=== PATIENT | male | born 1950 | race Caucasian/White ===

== ENCOUNTER 2017-02-18 01:38 | Emergency (ER) | payer OTHER | END 2017-02-18 04:36 | disposition home or self-care (01) | LOC: FTE 01:38 | DX: M25.551 Pain in right hip (principal); D17.23 Benign lipomatous neoplasm of skin and subcutaneous tissue of right leg; I10 Essential (primary) hypertension; F17.210 Nicotine dependence, cigarettes, uncomplicated | CPT/HCPCS: 73510; 99283-25 ==

== ENCOUNTER 2017-06-19 04:04 | Emergency (ER) | payer OTHER ==
[2017-06-19] MEDS: IPRATROPIUM (NEB) 0.5 MG/2.5 ML AMP HHN ×2 (04:53→05:48)
[2017-06-19] MEDS: ALBUTEROL 0.083% (NEB) 2.5 MG/3 ML AMP HHN ×2 (04:53→05:48)
== END 2017-06-19 07:05 | disposition home or self-care (01) ==
LOC: FTE 04:04
DX: J06.9 Acute upper respiratory infection, unspecified (principal); I10 Essential (primary) hypertension; F17.210 Nicotine dependence, cigarettes, uncomplicated
CPT/HCPCS: 94640; 94664; 99284-25

== ENCOUNTER 2017-10-08 12:46 | Emergency (ER) | payer OTHER ==
[2017-10-08] MEDS ORDERED: SOD CHLORIDE 0.9% 1,000 ML IV (12:54)
[2017-10-08] MEDS: HYDROCODONE/APAP (10/325) TAB PO (14:12)
[2017-10-08] MEDS: LOPERAMIDE 2 MG CAP PO (14:12)
== END 2017-10-08 15:57 | disposition home or self-care (01) ==
LOC: E/R 12:46
DX: F11.23 Opioid dependence with withdrawal (principal); I10 Essential (primary) hypertension; F17.210 Nicotine dependence, cigarettes, uncomplicated
CPT/HCPCS: 99283; J7030

== ENCOUNTER 2017-10-08 17:14 | Inpatient (IN) | payer OTHER ==
[2017-10-08 17:57] LABS: ADD MAN DIFF? NO
[2017-10-08] MEDS: LORAZEPAM 2 MG INJ IV ×4 (18:00→23:44)
[2017-10-08 18:01] LABS: WHITE BLOOD COUNT 18.9 10^3/ul (4.8-10.8)
[2017-10-08 18:01] LABS: BASOPHILS % 0.2 % (0.0-2.0); HEMATOCRIT 43.5 % (42.0-52.0); HEMOGLOBIN 15.5 g/dl (14.0-18.0); LYMPHOCYTES # 0.7 10^3/ul (0.8-2.9); LYMPHOCYTES % 3.9 % (15.0-51.0); MEAN CORPUSCULAR HEMOGLOBIN 30.3 pg (29.0-33.0); MEAN CORPUSCULAR HGB CONC 35.6 g/dl (32.0-37.0); MEAN CORPUSCULAR VOLUME 85.1 fl (82.0-101.0); MEAN PLATELET VOLUME 9.1 fl (7.4-10.4); MONOCYTE # 1.4 10^3/ul (0.3-0.9); MONOCYTES % 7.2 % (0.0-11.0); NEUTROPHIL # 16.6 10^3/ul (1.6-7.5); NEUTROPHILS % 88.2 % (39.0-77.0); PLATELET COUNT 365 10^3/UL (140-415); RED BLOOD COUNT 5.11 10^6/ul (4.70-6.10); RED CELL DISTRIBUTION WIDTH 12.4 % (11.5-14.5)
[2017-10-08] MEDS: LORAZEPAM 2 MG INJ IM (18:01)
[2017-10-08] MEDS: SOD CHLORIDE 0.9% 1,000 ML IV (18:13)
[2017-10-08 18:21] LABS: ALANINE AMINOTRANSFERASE 19 IU/L (13-69); ALBUMIN 4.8 g/dl (3.3-4.9); ALBUMIN/GLOBULIN RATIO 1.26; ALKALINE PHOSPHATASE 83 IU/L (42-121); ANION GAP 18 (8-16); ASPARTATE AMINO TRANSFERASE 35 IU/L (15-46); BILIRUBIN,INDIRECT 0.5 mg/dl (0-1.1); BILIRUBIN,TOTAL 0.5 mg/dl (0.2-1.3); BLOOD UREA NITROGEN 11 mg/dl (7-20); CALCIUM 10.3 mg/dl (8.4-10.2); CARBON DIOXIDE 19 mmol/L (21-31); CHLORIDE 104 mmol/L (97-110); CREATININE 0.76 mg/dl (0.61-1.24); GLUCOSE 144 mg/dl (70-220); LIPASE 1539 U/L (23-300); POTASSIUM 3.3 mmol/L (3.5-5.1); SODIUM 138 mmol/L (135-144); TOTAL PROTEIN 8.6 g/dl (6.1-8.1)
[2017-10-08 18:23] LABS: AMMONIA < 9 umol/l (9-30)
[2017-10-08 18:44] LABS: ADD UMIC YES; UR ASCORBIC ACID NEGATIVE (NEGATIVE); UR BILIRUBIN (Dip) NEGATIVE (NEGATIVE); UR BLOOD (Dip) 2+ mg/dL (NEGATIVE); UR CLARITY CLEAR (CLEAR); UR COLOR YELLOW (YELLOW); UR GLUCOSE (Dip) 1+ mg/dL (NEGATIVE); UR KETONES (Dip) 1+ mg/dL (NEGATIVE); UR LEUKOCYTE ESTERASE (Dip) NEGATIVE Leu/ul (NEGATIVE); UR NITRITE (Dip) NEGATIVE (NEGATIVE); UR RBC 3 /HPF (0-5); UR SPECIFIC GRAVITY (Dip) 1.015 (1.003-1.030); UR TOTAL PROTEIN (Dip) 1+ mg/dl (NEGATIVE); UR UROBILINOGEN (Dip) NEGATIVE (NEGATIVE); UR WBC 1 /HPF (0-5)
[2017-10-08] MEDS ORDERED: ACETAMINOPHEN 325 MG TAB PO (19:00)
[2017-10-08] MEDS ORDERED: ONDANSETRON 4 MG INJ IV ×2 (19:00→21:30)
[2017-10-08] MEDS: ONDANSETRON 4 MG INJ IV (19:12)
[2017-10-08] MEDS: morphine 4 MG/ML VIAL IV (19:12)
[2017-10-08 19:33] LABS: ETHANOL < 10.0 mg/dl
[2017-10-08] MEDS: HALOPERIDOL 5 MG INJ IM (19:50)
[2017-10-08] MEDS: POTASSIUM CHLORIDE 100 ML IVPB (20:05)
[2017-10-08] MEDS: HYDROmorphONE 1 MG/ML SYG IV (21:16)
[2017-10-08] MEDS ORDERED: NACL 0.9% 3 ML SYG IV (21:30)
[2017-10-08] MEDS ORDERED: IPRATROPIUM (NEB) 0.5 MG/2.5 ML AMP NEB (21:30)
[2017-10-09] MEDS: CEFEPIME 1GM/50 ML (PMX) 50 ML IVPB ×3 (03:19→21:17)
[2017-10-09] MEDS: LORAZEPAM 2 MG INJ IV ×2 (04:57→23:37)
[2017-10-09] MEDS ORDERED: MULTIVITAMINS 10 ML, THIAMINE 100 MG, FOLIC ACID 1 MG in SOD CHLORIDE 0.9% 1,000 ML IVPB (05:00)
[2017-10-09] MEDS: MULTIVITAMINS 10 ML, THIAMINE 100 MG in SOD CHLORIDE 0.9% 1,000 ML IVPB (05:19)
[2017-10-09 06:18] LABS: ADD MAN DIFF? NO
[2017-10-09 06:40] LABS: BASOPHILS % 0.1 % (0.0-2.0); HEMATOCRIT 47.7 % (42.0-52.0); HEMOGLOBIN 16.9 g/dl (14.0-18.0); LYMPHOCYTES # 0.9 10^3/ul (0.8-2.9); LYMPHOCYTES % 5.5 % (15.0-51.0); MEAN CORPUSCULAR HEMOGLOBIN 29.8 pg (29.0-33.0); MEAN CORPUSCULAR HGB CONC 35.4 g/dl (32.0-37.0); MEAN PLATELET VOLUME 9.6 fl (7.4-10.4); MONOCYTE # 1.3 10^3/ul (0.3-0.9); MONOCYTES % 7.3 % (0.0-11.0); NEUTROPHIL # 14.7 10^3/ul (1.6-7.5); NEUTROPHILS % 86.4 % (39.0-77.0); PLATELET COUNT 335 10^3/UL (140-415); RED BLOOD COUNT 5.68 10^6/ul (4.70-6.10); RED CELL DISTRIBUTION WIDTH 12.9 % (11.5-14.5)
[2017-10-09 07:36] LABS: ALANINE AMINOTRANSFERASE 24 IU/L (13-69); ALBUMIN 4.5 g/dl (3.3-4.9); ALBUMIN/GLOBULIN RATIO 1.25; ALKALINE PHOSPHATASE 76 IU/L (42-121); ANION GAP 18 (8-16); ASPARTATE AMINO TRANSFERASE 108 IU/L (15-46); BILIRUBIN,INDIRECT 0.8 mg/dl (0-1.1); BILIRUBIN,TOTAL 0.8 mg/dl (0.2-1.3); BLOOD UREA NITROGEN 10 mg/dl (7-20); CALCIUM 9.9 mg/dl (8.4-10.2); CARBON DIOXIDE 19 mmol/L (21-31); CHLORIDE 107 mmol/L (97-110); CREATININE 0.65 mg/dl (0.61-1.24); GLUCOSE 135 mg/dl (70-220); MAGNESIUM 1.8 mg/dl (1.7-2.5); PHOSPHORUS 1.6 mg/dl (2.5-4.9); POTASSIUM 4.1 mmol/L (3.5-5.1); SODIUM 140 mmol/L (135-144); TOTAL PROTEIN 8.1 g/dl (6.1-8.1)
[2017-10-09] MEDS: FAMOTIDINE 20 MG INJ IV ×2 (09:07→21:04)
[2017-10-09] MEDS ORDERED: VANCOMYCIN IV PER PHARMACY XX (09:30)
[2017-10-09] MEDS ORDERED: VANCOMYCIN 1.25 GM in SOD CHLORIDE 0.9% 250 ML IVPB (10:00)
[2017-10-09 12:39] LABS: AMPHETAMINE/METHAMPHETAMINE Negative (NEGATIVE); BARBITURATES Negative (NEGATIVE); BENZODIAZEPINES Negative (NEGATIVE); CANNABINOIDS Negative (NEGATIVE); COCAINE Negative (NEGATIVE)
[2017-10-09] MEDS ORDERED: NALOXONE (0.4 MG/ML) INJ (12:53)
[2017-10-09 12:55] LABS: OPIATES Positive (NEGATIVE)
[2017-10-09] MEDS: NALOXONE (0.4 MG/ML) INJ IV (13:01)
[2017-10-09] MEDS: VANCOMYCIN 1.25 GM in SOD CHLORIDE 0.9% 250 ML IVPB (15:03)
[2017-10-09] MEDS: CHLORDIAZEPOXIDE 25 MG CAP PO (21:04)
[2017-10-09] MEDS: SOD CHLORIDE 0.9% 1,000 ML IV (21:07)
[2017-10-10] MEDS: SOD CHLORIDE 0.9% 1,000 ML IV ×2 (00:01→09:00)
[2017-10-10] MEDS: VANCOMYCIN 1 GM 250 ML IVPB (01:49)
[2017-10-10] MEDS: MULTIVITAMINS 10 ML, THIAMINE 100 MG in SOD CHLORIDE 0.9% 1,000 ML IVPB (04:17)
[2017-10-10] MEDS: LORAZEPAM 2 MG INJ IV (04:39)
[2017-10-10 06:20] LABS: ADD MAN DIFF? NO
[2017-10-10 06:25] LABS: ABNORMAL IP MESSAGE 1; BASOPHILS % 0.1 % (0.0-2.0); HEMATOCRIT 45.9 % (42.0-52.0); HEMOGLOBIN 16.2 g/dl (14.0-18.0); LYMPHOCYTES # 1.2 10^3/ul (0.8-2.9); LYMPHOCYTES % 6.3 % (15.0-51.0); MEAN CORPUSCULAR HEMOGLOBIN 29.8 pg (29.0-33.0); MEAN CORPUSCULAR HGB CONC 35.3 g/dl (32.0-37.0); MEAN CORPUSCULAR VOLUME 84.5 fl (82.0-101.0); MEAN PLATELET VOLUME 9.1 fl (7.4-10.4); MONOCYTE # 1.7 10^3/ul (0.3-0.9); MONOCYTES % 8.9 % (0.0-11.0); NEUTROPHIL # 15.8 10^3/ul (1.6-7.5); NEUTROPHILS % 84.2 % (39.0-77.0); PLATELET COUNT 349 10^3/UL (140-415); POSITIVE DIFF @See below; RED BLOOD COUNT 5.43 10^6/ul (4.70-6.10); RED CELL DISTRIBUTION WIDTH 13.2 % (11.5-14.5)
[2017-10-10 06:25] LABS: WHITE BLOOD COUNT 18.7 10^3/ul (4.8-10.8)
[2017-10-10 06:43] LABS: AMYLASE 157 U/L (11-123); ANION GAP 13 (8-16); BLOOD UREA NITROGEN 12 mg/dl (7-20); CALCIUM 9.2 mg/dl (8.4-10.2); CARBON DIOXIDE 22 mmol/L (21-31); CHLORIDE 109 mmol/L (97-110); CREATININE 0.64 mg/dl (0.61-1.24); GLUCOSE 149 mg/dl (70-220); LIPASE 729 U/L (23-300); MAGNESIUM 2.1 mg/dl (1.7-2.5); PHOSPHORUS 1.8 mg/dl (2.5-4.9); POTASSIUM 3.1 mmol/L (3.5-5.1); SODIUM 141 mmol/L (135-144)
[2017-10-10] MEDS: CHLORDIAZEPOXIDE 25 MG CAP PO (09:00)
[2017-10-10] MEDS: CEFEPIME 1GM/50 ML (PMX) 50 ML IVPB (09:10)
[2017-10-10] MEDS: FAMOTIDINE 20 MG INJ IV (09:10)
[2017-10-10] MEDS ORDERED: POTASSIUM PHOSPHATE 20 MEQ in SOD CHLORIDE 0.9% 250 ML IVPB (12:00)
== END 2017-10-10 11:05 | disposition left against medical advice (07) | DRG 438 ==
LOC: E/R 17:14 → 2NE 18:57 → TEL 22:41
PROVIDERS: Internal Medicine
DX: K85.90 Acute pancreatitis without necrosis or infection, unspecified (principal); G92 Toxic encephalopathy; R65.10 Systemic inflammatory response syndrome (SIRS) of non-infectious origin without acute organ dysfunction; E87.6 Hypokalemia; E83.39 Other disorders of phosphorus metabolism; F17.200 Nicotine dependence, unspecified, uncomplicated
CPT/HCPCS: 36415; 70450; 71045; 74176; 76705; 80048; 80053; 80307; 81001; 82140; 82150; 83690; 83735; 84100; 85025; 87040; 87086; 96372; 97161; 99285-25

== ENCOUNTER 2017-10-12 14:34 | Observation (INO) | payer MEDICARE, OTHER ==
[2017-10-12] MEDS: SOD CHLORIDE 0.9% 1,000 ML IV ×4 (15:00→21:51)
[2017-10-12] MEDS: LORAZEPAM 2 MG INJ IV ×2 (15:00→19:47)
[2017-10-12 15:13] LABS: ADD UMIC YES; UR ASCORBIC ACID NEGATIVE (NEGATIVE); UR BILIRUBIN (Dip) NEGATIVE (NEGATIVE); UR BLOOD (Dip) 1+ mg/dL (NEGATIVE); UR CLARITY CLEAR (CLEAR); UR COLOR YELLOW (YELLOW); UR GLUCOSE (Dip) NEGATIVE (NEGATIVE); UR KETONES (Dip) NEGATIVE (NEGATIVE); UR LEUKOCYTE ESTERASE (Dip) NEGATIVE Leu/ul (NEGATIVE); UR NITRITE (Dip) NEGATIVE (NEGATIVE); UR RBC 0 /HPF (0-5); UR SPECIFIC GRAVITY (Dip) 1.018 (1.003-1.030); UR TOTAL PROTEIN (Dip) NEGATIVE (NEGATIVE); UR UROBILINOGEN (Dip) NEGATIVE (NEGATIVE); UR WBC 1 /HPF (0-5)
[2017-10-12 15:39] LABS: ADD MAN DIFF? NO
[2017-10-12 15:41] LABS: ABNORMAL IP MESSAGE 1; BASOPHILS % 0.1 % (0.0-2.0); EOSINOPHILS # 0.2 10^3/ul (0.0-0.5); EOSINOPHILS % 1.8 % (0.0-7.0); HEMATOCRIT 41.3 % (42.0-52.0); HEMOGLOBIN 14.7 g/dl (14.0-18.0); LYMPHOCYTES # 1.7 10^3/ul (0.8-2.9); LYMPHOCYTES % 12.8 % (15.0-51.0); MEAN CORPUSCULAR HEMOGLOBIN 30.5 pg (29.0-33.0); MEAN CORPUSCULAR HGB CONC 35.6 g/dl (32.0-37.0); MEAN CORPUSCULAR VOLUME 85.7 fl (82.0-101.0); MEAN PLATELET VOLUME 9.1 fl (7.4-10.4); MONOCYTE # 1.6 10^3/ul (0.3-0.9); MONOCYTES % 12.1 % (0.0-11.0); NEUTROPHIL # 9.8 10^3/ul (1.6-7.5); NEUTROPHILS % 72.7 % (39.0-77.0); PLATELET COUNT 302 10^3/UL (140-415); POSITIVE DIFF @See below; RED BLOOD COUNT 4.82 10^6/ul (4.70-6.10)
[2017-10-12 15:41] LABS: WHITE BLOOD COUNT 13.5 10^3/ul (4.8-10.8)
[2017-10-12 16:09] LABS: ALANINE AMINOTRANSFERASE 63 IU/L (13-69); ALBUMIN 4.1 g/dl (3.3-4.9); ALBUMIN/GLOBULIN RATIO 1.24; ALKALINE PHOSPHATASE 64 IU/L (42-121); ANION GAP 15 (8-16); ASPARTATE AMINO TRANSFERASE 85 IU/L (15-46); BILIRUBIN,INDIRECT 0.4 mg/dl (0-1.1); BILIRUBIN,TOTAL 0.4 mg/dl (0.2-1.3); BLOOD UREA NITROGEN 33 mg/dl (7-20); CALCIUM 9.4 mg/dl (8.4-10.2); CARBON DIOXIDE 23 mmol/L (21-31); CHLORIDE 107 mmol/L (97-110); CREATININE 1.26 mg/dl (0.61-1.24); GLUCOSE 84 mg/dl (70-220); POTASSIUM 3.1 mmol/L (3.5-5.1); SODIUM 142 mmol/L (135-144); TOTAL PROTEIN 7.4 g/dl (6.1-8.1)
[2017-10-12 16:16] LABS: AMPHETAMINE/METHAMPHETAMINE Negative (NEGATIVE); BARBITURATES Negative (NEGATIVE); BENZODIAZEPINES Positive (NEGATIVE); CANNABINOIDS Negative (NEGATIVE); COCAINE Negative (NEGATIVE)
[2017-10-12 16:35] LABS: ACETAMINOPHEN < 10.0 ug/ml (10.0-30.0); ETHANOL < 10.0 mg/dl; SALICYLATE < 1.0 mg/dl (5.0-30.0)
[2017-10-12 16:36] LABS: OPIATES Positive (NEGATIVE)
[2017-10-12] MEDS ORDERED: ONDANSETRON 4 MG INJ IV ×3 (18:30→19:00)
[2017-10-12] MEDS ORDERED: ACETAMINOPHEN 325 MG TAB PO ×3 (18:30→19:00)
[2017-10-12] MEDS ORDERED: NACL 0.9% 3 ML SYG IV (19:00)
[2017-10-12] MEDS ORDERED: NA PHOSPHATE/BIPHOS 133 ML ENEMA PR (19:00)
[2017-10-12] MEDS ORDERED: DOCUSATE SODIUM 100 MG CAP PO (19:00)
[2017-10-12] MEDS ORDERED: NITROGLYCERIN (SL) 0.4 MG TAB SL (19:00)
[2017-10-12] MEDS ORDERED: HYDROCODONE/APAP (5/325) TAB PO (19:00)
[2017-10-12] MEDS ORDERED: ALBUTEROL/IPRATROPIUM (NEB) 3 ML AMP HHN (19:00)
[2017-10-12] MEDS ORDERED: hydrALAzine 20 MG INJ IV (19:00)
[2017-10-12] MEDS ORDERED: MAGNESIUM HYDROXIDE 30ML CUP PO (19:00)
[2017-10-12] MEDS ORDERED: FLUMAZENIL 0.5 MG INJ ×2 (19:15→19:16)
[2017-10-12] MEDS: FLUMAZENIL 0.5 MG INJ IV (19:18)
[2017-10-12] MEDS: ACETAMINOPHEN 650 MG SUPP PR (19:46)
[2017-10-12] MEDS: HEPARIN 5,000 UNIT/0.5 ML VIAL SC (21:52)
[2017-10-13] MEDS: SOD CHLORIDE 0.9% 1,000 ML IV ×2 (04:51→14:51)
[2017-10-13] MEDS: POTASSIUM CHLORIDE (SR) 20 MEQ TAB PO (05:00)
[2017-10-13] MEDS: HALOPERIDOL 5 MG INJ IM (05:19)
[2017-10-13] MEDS: PANTOPRAZOLE 40 MG INJ IV (05:19)
[2017-10-13 06:17] LABS: ADD MAN DIFF? NO
[2017-10-13 06:35] LABS: BASOPHILS % 0.1 % (0.0-2.0); HEMOGLOBIN 17.3 g/dl (14.0-18.0); LYMPHOCYTES # 1.1 10^3/ul (0.8-2.9); LYMPHOCYTES % 9.5 % (15.0-51.0); MEAN CORPUSCULAR HEMOGLOBIN 30.4 pg (29.0-33.0); MEAN CORPUSCULAR VOLUME 84.2 fl (82.0-101.0); MEAN PLATELET VOLUME 9.6 fl (7.4-10.4); MONOCYTE # 1.1 10^3/ul (0.3-0.9); MONOCYTES % 10.1 % (0.0-11.0); NEUTROPHILS % 79.8 % (39.0-77.0); PLATELET COUNT 264 10^3/UL (140-415); RED CELL DISTRIBUTION WIDTH 12.6 % (11.5-14.5)
[2017-10-13 06:35] LABS: WHITE BLOOD COUNT 11.3 10^3/ul (4.8-10.8)
[2017-10-13 07:25] LABS: ANION GAP 16 (8-16); BLOOD UREA NITROGEN 14 mg/dl (7-20); CALCIUM 8.9 mg/dl (8.4-10.2); CARBON DIOXIDE 22 mmol/L (21-31); CHLORIDE 109 mmol/L (97-110); CREATININE 0.65 mg/dl (0.61-1.24); GLUCOSE 95 mg/dl (70-220); MAGNESIUM 1.9 mg/dl (1.7-2.5); PHOSPHORUS 1.9 mg/dl (2.5-4.9); POTASSIUM 3.1 mmol/L (3.5-5.1); SODIUM 144 mmol/L (135-144)
[2017-10-13 07:28] LABS: HEMOGLOBIN A1C 5.7 % (0-5.9)
[2017-10-13 07:43] LABS: CHOLESTEROL 198 mg/dl (100-200)
[2017-10-13 07:43] LABS: CHOL/HDL RATIO 4.8 RATIO; HDL CHOLESTEROL 41 mg/dl (30-78); LDL CHOLESTEROL,CALCULATED 128 mg/dl; TRIGLYCERIDES 144 mg/dl (0-149)
[2017-10-13 07:54] LABS: LIPASE 612 U/L (23-300)
[2017-10-13 08:12] LABS: THYROID STIMULATING HORMONE 0.228 MIU/L (0.465-4.680)
[2017-10-13] MEDS: POTASSIUM CHLORIDE 100 ML IVPB ×2 (09:12→10:36)
[2017-10-13] MEDS: LEVOFLOXACIN 500MG/D5W (PMX) 100 ML IVPB (09:12)
[2017-10-13] MEDS: HEPARIN 5,000 UNIT/0.5 ML VIAL SC ×2 (10:06→20:56)
[2017-10-13] MEDS: POTASSIUM PHOSPHATE 40 MEQ in SOD CHLORIDE 0.9% 250 ML IVPB (13:18)
[2017-10-13] MEDS: METHADONE 5 MG TAB PO (17:56)
[2017-10-13] MEDS ORDERED: METHADONE 10 MG TAB PO (18:10)
[2017-10-13] MEDS: LORAZEPAM 2 MG INJ IV (18:59)
[2017-10-14] MEDS: LORAZEPAM 2 MG INJ IV
[2017-10-14] MEDS: SOD CHLORIDE 0.9% 1,000 ML IV ×2 (04:21→10:58)
[2017-10-14] MEDS: PANTOPRAZOLE 40 MG INJ IV (05:55)
[2017-10-14 06:07] LABS: ADD MAN DIFF? NO
[2017-10-14 06:13] LABS: ABNORMAL IP MESSAGE 1; BASOPHILS % 0.1 % (0.0-2.0); EOSINOPHILS # 0.1 10^3/ul (0.0-0.5); EOSINOPHILS % 0.5 % (0.0-7.0); HEMATOCRIT 44.2 % (42.0-52.0); HEMOGLOBIN 15.4 g/dl (14.0-18.0); LYMPHOCYTES # 1.6 10^3/ul (0.8-2.9); MEAN CORPUSCULAR HEMOGLOBIN 29.9 pg (29.0-33.0); MEAN CORPUSCULAR HGB CONC 34.8 g/dl (32.0-37.0); MEAN CORPUSCULAR VOLUME 85.8 fl (82.0-101.0); MEAN PLATELET VOLUME 9.4 fl (7.4-10.4); MONOCYTE # 1.7 10^3/ul (0.3-0.9); NEUTROPHIL # 10.9 10^3/ul (1.6-7.5); NEUTROPHILS % 75.9 % (39.0-77.0); PLATELET COUNT 317 10^3/UL (140-415); POSITIVE DIFF @See below; RED BLOOD COUNT 5.15 10^6/ul (4.70-6.10); RED CELL DISTRIBUTION WIDTH 13.2 % (11.5-14.5)
[2017-10-14 06:13] LABS: WHITE BLOOD COUNT 14.4 10^3/ul (4.8-10.8)
[2017-10-14 06:41] LABS: ANION GAP 13 (8-16); BLOOD UREA NITROGEN 10 mg/dl (7-20); CALCIUM 9.2 mg/dl (8.4-10.2); CARBON DIOXIDE 24 mmol/L (21-31); CHLORIDE 109 mmol/L (97-110); CREATININE 0.59 mg/dl (0.61-1.24); GLUCOSE 109 mg/dl (70-220); POTASSIUM 3.6 mmol/L (3.5-5.1); SODIUM 142 mmol/L (135-144)
[2017-10-14 06:44] LABS: PHOSPHORUS 2.1 mg/dl (2.5-4.9)
[2017-10-14 06:44] LABS: MAGNESIUM 1.9 mg/dl (1.7-2.5)
[2017-10-14] MEDS: LEVOFLOXACIN 500MG/D5W (PMX) 100 ML IVPB (09:10)
[2017-10-14] MEDS: METHADONE 10 MG TAB PO (09:10)
[2017-10-14] MEDS: HEPARIN 5,000 UNIT/0.5 ML VIAL SC (09:46)
[2017-10-14 10:37] LABS: LIPASE 828 U/L (23-300)
[2017-10-14] MEDS: POTASSIUM PHOSPHATE 30 MM in SOD CHLORIDE 0.9% 250 ML IVPB (10:58)
[2017-10-14] MEDS: NICOTINE (21 MG/24 HR) PATCH TRANSDERM (11:56)
[2017-10-14] MEDS: morphine 2 MG INJ IV (13:08)
== END 2017-10-14 15:20 | disposition home or self-care (01) ==
LOC: E/R 14:34 → 6WM 18:08
PROVIDERS: Hospitalist
DX: T40.1X1A Poisoning by heroin, accidental (unintentional), initial encounter (principal); N17.9 Acute kidney failure, unspecified; E87.6 Hypokalemia; G92 Toxic encephalopathy; F11.129 Opioid abuse with intoxication, unspecified; K85.90 Acute pancreatitis without necrosis or infection, unspecified
CPT/HCPCS: 36415; 70450; 71045; 80048; 80053; 80061; 80307; 81001; 82962; 83036; 83690; 83735; 84100; 84439; 84443; 85025; 92610; 93005; 96374; 99285-25; G0378

== ENCOUNTER 2018-01-20 20:20 | Emergency (ER) | payer MEDICARE, OTHER ==
[2018-01-20 21:14] LABS: ADD MAN DIFF? NO
[2018-01-20 21:24] LABS: WHITE BLOOD COUNT 7.4 10^3/ul (4.8-10.8)
[2018-01-20 21:24] LABS: BASOPHILS % 0.1 % (0.0-2.0); EOSINOPHILS # 0.1 10^3/ul (0.0-0.5); EOSINOPHILS % 0.8 % (0.0-7.0); HEMATOCRIT 44.5 % (42.0-52.0); HEMOGLOBIN 15.1 g/dl (14.0-18.0); LYMPHOCYTES # 0.8 10^3/ul (0.8-2.9); LYMPHOCYTES % 10.7 % (15.0-51.0); MEAN CORPUSCULAR HEMOGLOBIN 29.6 pg (29.0-33.0); MEAN CORPUSCULAR HGB CONC 33.9 g/dl (32.0-37.0); MEAN CORPUSCULAR VOLUME 87.3 fl (82.0-101.0); MEAN PLATELET VOLUME 9.7 fl (7.4-10.4); MONOCYTE # 0.6 10^3/ul (0.3-0.9); MONOCYTES % 8.5 % (0.0-11.0); NEUTROPHIL # 5.9 10^3/ul (1.6-7.5); NEUTROPHILS % 79.6 % (39.0-77.0); PLATELET COUNT 224 10^3/UL (140-415); RED CELL DISTRIBUTION WIDTH 13.5 % (11.5-14.5)
[2018-01-20] MEDS: CEFTRIAXONE 1 GM/50 ML (PMX) 50 ML IVPB (21:27)
[2018-01-20] MEDS: SODIUM CHLORIDE 0.9% 1L BAG IV* (21:27)
[2018-01-20 21:48] LABS: ANION GAP 14 (5-13); BLOOD UREA NITROGEN 9 mg/dl (7-20); CALCIUM 9.5 mg/dl (8.4-10.2); CARBON DIOXIDE 20 mmol/L (21-31); CHLORIDE 102 mmol/L (97-110); CREATININE 0.66 mg/dl (0.61-1.24); Estimated GFR > 60 mL/min (>60); GLUCOSE 138 mg/dl (70-220); POTASSIUM 3.8 mmol/L (3.5-5.1); SODIUM 136 mmol/L (135-144)
[2018-01-20 21:51] LABS: INR 0.91; PROTIME 12.3 Sec (11.9-14.9)
[2018-01-20 21:52] LABS: PARTIAL THROMBOPLASTIN TIME 30.6 Sec (23.0-35.0)
[2018-01-20 22:00] LABS: TROPONIN-I < 0.012 ng/ml (0.000-0.120)
[2018-01-20] MEDS: AZITHROMYCIN 500MG/NS (PMX) 250 ML IV (22:04)
[2018-01-20] MEDS: ALBUTEROL 0.083% (NEB) 2.5 MG/3 ML AMP NEB (22:16)
[2018-01-20] MEDS: IPRATROPIUM (NEB) 0.5 MG/2.5 ML AMP NEB (22:16)
[2018-01-20] MEDS: predniSONE 20 MG TAB PO (23:09)
== END 2018-01-20 23:25 | disposition home or self-care (01) ==
LOC: E/R 20:20
DX: J22 Unspecified acute lower respiratory infection (principal); F17.210 Nicotine dependence, cigarettes, uncomplicated
CPT/HCPCS: 71045; 80048; 83605; 84484; 85025; 85610; 85730; 87040; 87400; 93005; 94664; 96365; 96366; 96368; 99285-25

== ENCOUNTER 2018-04-25 01:22 | Inpatient (IN) | payer MEDICARE, OTHER ==
[2018-04-25] MEDS: ONDANSETRON 4 MG INJ IV ×2 (05:01→09:52)
[2018-04-25] MEDS: SOD CHLORIDE 0.9% 1,000 ML IV ×2 (05:01→13:15)
[2018-04-25] MEDS: HYDROmorphONE 1 MG/ML SYG IV ×2 (05:01→09:52)
[2018-04-25 06:01] LABS: ADD MAN DIFF? NO
[2018-04-25 06:03] LABS: BASOPHILS % 0.1 % (0.0-2.0); EOSINOPHILS % 0.1 % (0.0-7.0); HEMATOCRIT 45.9 % (42.0-52.0); HEMOGLOBIN 16.1 g/dl (14.0-18.0); LYMPHOCYTES # 0.8 10^3/ul (0.8-2.9); LYMPHOCYTES % 4.1 % (15.0-51.0); MEAN CORPUSCULAR HEMOGLOBIN 29.8 pg (29.0-33.0); MEAN CORPUSCULAR HGB CONC 35.1 g/dl (32.0-37.0); MEAN PLATELET VOLUME 9.6 fl (7.4-10.4); MONOCYTE # 0.8 10^3/ul (0.3-0.9); NEUTROPHIL # 17.8 10^3/ul (1.6-7.5); NEUTROPHILS % 91.3 % (39.0-77.0); PLATELET COUNT 244 10^3/UL (140-415); RED CELL DISTRIBUTION WIDTH 13.1 % (11.5-14.5)
[2018-04-25 06:03] LABS: WHITE BLOOD COUNT 19.5 10^3/ul (4.8-10.8)
[2018-04-25 06:18] LABS: ALANINE AMINOTRANSFERASE 14 IU/L (13-69); ALBUMIN 4.8 g/dl (3.3-4.9); ALBUMIN/GLOBULIN RATIO 1.29; ALKALINE PHOSPHATASE 88 IU/L (42-121); ANION GAP 14 (5-13); ASPARTATE AMINO TRANSFERASE 24 IU/L (15-46); BILIRUBIN,INDIRECT 0.4 mg/dl (0-1.1); BILIRUBIN,TOTAL 0.4 mg/dl (0.2-1.3); BLOOD UREA NITROGEN 9 mg/dl (7-20); CALCIUM 9.9 mg/dl (8.4-10.2); CARBON DIOXIDE 20 mmol/L (21-31); CHLORIDE 105 mmol/L (97-110); CREATININE 0.67 mg/dl (0.61-1.24); Estimated GFR > 60 mL/min (>60); GLUCOSE 157 mg/dl (70-220); POTASSIUM 4.2 mmol/L (3.5-5.1); SODIUM 139 mmol/L (135-144); TOTAL PROTEIN 8.5 g/dl (6.1-8.1)
[2018-04-25] MEDS ORDERED: ACETAMINOPHEN 325 MG TAB PO (09:30)
[2018-04-25] MEDS ORDERED: ONDANSETRON 4 MG INJ IV ×3 (09:30→23:30)
[2018-04-25] MEDS: PIPER-TAZO 3.375 GM IV (PMX) 100 ML IVPB (09:52)
[2018-04-25] MEDS ORDERED: hydrOXYzine HCL 10 MG TAB PO (10:30)
[2018-04-25] MEDS ORDERED: ACETAMINOPHEN 650 MG SUPP PR (10:30)
[2018-04-25] MEDS ORDERED: hydrALAzine 20 MG INJ IV ×2 (10:30→23:30)
[2018-04-25] MEDS ORDERED: NACL 0.9% 3 ML SYG IV (10:30)
[2018-04-25] MEDS: SOD CHLORIDE 0.9% 100 ML (11:27)
[2018-04-25] MEDS: IOHEXOL 300MG/ML 150 ML BTL (11:29)
[2018-04-25] MEDS: CITALOPRAM 20 MG TAB PO (13:15)
[2018-04-25] MEDS: LISINOPRIL 20 MG TAB PO (13:16)
[2018-04-25] MEDS: AMLODIPINE 10 MG TAB PO (13:16)
[2018-04-25] MEDS: CIPROFLOXACIN 400MG/D5W 200 ML IVPB ×2 (13:18→23:41)
[2018-04-25 14:17] LABS: LIPASE 84 U/L (23-300)
[2018-04-25 14:17] LABS: AMYLASE 48 U/L (11-123)
[2018-04-25 14:18] LABS: ETHANOL < 10.0 mg/dl (0-0)
[2018-04-25 14:38] LABS: ADD UMIC YES; UR ASCORBIC ACID NEGATIVE (NEGATIVE); UR BILIRUBIN (Dip) NEGATIVE (NEGATIVE); UR BLOOD (Dip) 1+ mg/dL (NEGATIVE); UR CLARITY CLEAR (CLEAR); UR COLOR YELLOW (YELLOW); UR GLUCOSE (Dip) NEGATIVE (NEGATIVE); UR KETONES (Dip) NEGATIVE (NEGATIVE); UR LEUKOCYTE ESTERASE (Dip) NEGATIVE Leu/ul (NEGATIVE); UR NITRITE (Dip) NEGATIVE (NEGATIVE); UR RBC 4 /HPF (0-5); UR SPECIFIC GRAVITY (Dip) 1.034 (1.003-1.030); UR TOTAL PROTEIN (Dip) NEGATIVE (NEGATIVE); UR UROBILINOGEN (Dip) NEGATIVE (NEGATIVE); UR WBC 0 /HPF (0-5)
[2018-04-25 15:12] LABS: AMPHETAMINE/METHAMPHETAMINE Negative (NEGATIVE); BARBITURATES Negative (NEGATIVE); BENZODIAZEPINES Negative (NEGATIVE); CANNABINOIDS Negative (NEGATIVE); COCAINE Negative (NEGATIVE); OPIATES Positive (NEGATIVE)
[2018-04-25] MEDS: metroNIDAZOLE 500 MG/NS (PMX) 100 ML IVPB ×2 (15:33→22:24)
[2018-04-25] MEDS: FAMOTIDINE 20 MG INJ IV (20:53)
[2018-04-25] MEDS ORDERED: LABETALOL HCL 20MG INJ IV (23:30)
[2018-04-25] MEDS ORDERED: METOCLOPRAMIDE 10 MG INJ IV (23:30)
[2018-04-25] MEDS ORDERED: DIPHENHYDRAMINE 50 MG INJ IV (23:30)
[2018-04-25] MEDS ORDERED: FENTAnyl 50 MCG/ML VIAL IV ×3 (23:30)
[2018-04-25] MEDS ORDERED: HYDROmorphONE 1 MG/5 ML IV SYRINGE IV ×3 (23:30)
[2018-04-25] MEDS ORDERED: OXYCODONE/ACETAMINOPHEN (5/325) TAB PO (23:30)
[2018-04-25] MEDS ORDERED: EPHEDrine SULFATE 50 MG/5 ML SYG IV (23:30)
[2018-04-25] MEDS ORDERED: MEPERIDINE 25 MG INJ IV (23:30)
[2018-04-25] MEDS ORDERED: PROPOFOL 20 ML (23:31)
[2018-04-25] MEDS ORDERED: ROCURONIUM 50 MG INJ (23:31)
[2018-04-25] MEDS ORDERED: MIDAZOLAM 1 MG/ML 2 ML INJ (23:31)
[2018-04-25] MEDS ORDERED: ROPIVACAINE 0.5 % 30 ML VIAL (23:31)
[2018-04-25] MEDS ORDERED: FENTAnyl 50 MCG/ML VIAL (23:31)
[2018-04-25 23:45] LABS: INR 1.11; PROTIME 14.4 Sec (11.9-14.9); PT RATIO 1.1
[2018-04-25 23:46] LABS: PARTIAL THROMBOPLASTIN TIME 34.7 Sec (23.0-35.0)
[2018-04-26] MEDS ORDERED: hydrALAzine 20 MG INJ (00:58)
[2018-04-26] MEDS ORDERED: METOCLOPRAMIDE 10 MG INJ (01:07)
[2018-04-26] MEDS ORDERED: ONDANSETRON 4 MG INJ (01:07)
[2018-04-26] MEDS ORDERED: DEXAMETHASONE 4 MG/ML 5 ML INJ (01:07)
[2018-04-26] MEDS ORDERED: SUGAMMADEX SODIUM 200 MG/2 ML VIAL IV (01:49)
[2018-04-26] MEDS ORDERED: KETOROLAC 30 MG INJ (01:51)
[2018-04-26] MEDS ORDERED: VANCOMYCIN 1 GM (PMX) 250 ML (01:53)
[2018-04-26] MEDS: D5W-0.45 NACL + KCL 20 MEQ 1,000 ML IV ×4 (02:09→21:39)
[2018-04-26] MEDS ORDERED: ACETAMINOPHEN 325 MG TAB PO (02:30)
[2018-04-26] MEDS ORDERED: ONDANSETRON 4 MG INJ IV (02:30)
[2018-04-26 05:17] LABS: ADD MAN DIFF? NO
[2018-04-26 05:18] LABS: WHITE BLOOD COUNT 18.1 10^3/ul (4.8-10.8)
[2018-04-26 05:19] LABS: ABNORMAL IP MESSAGE 1; BASOPHILS % 0.1 % (0.0-2.0); HEMATOCRIT 40.6 % (42.0-52.0); LYMPHOCYTES # 0.6 10^3/ul (0.8-2.9); LYMPHOCYTES % 3.2 % (15.0-51.0); MEAN CORPUSCULAR HEMOGLOBIN 29.8 pg (29.0-33.0); MEAN CORPUSCULAR HGB CONC 34.5 g/dl (32.0-37.0); MEAN CORPUSCULAR VOLUME 86.4 fl (82.0-101.0); MEAN PLATELET VOLUME 9.9 fl (7.4-10.4); MONOCYTE # 0.4 10^3/ul (0.3-0.9); PLATELET COUNT 232 10^3/UL (140-415); POSITIVE DIFF @See below; RED CELL DISTRIBUTION WIDTH 13.3 % (11.5-14.5)
[2018-04-26] MEDS: PIPER-TAZO 3.375 GM IV (PMX) 100 ML IVPB ×4 (05:20→23:38)
[2018-04-26 05:34] LABS: HEMOGLOBIN A1C 5.3 % (0-5.9)
[2018-04-26 06:04] LABS: ALANINE AMINOTRANSFERASE 13 IU/L (13-69); ALBUMIN 3.9 g/dl (3.3-4.9); ALKALINE PHOSPHATASE 63 IU/L (42-121); ANION GAP 9 (5-13); ASPARTATE AMINO TRANSFERASE 16 IU/L (15-46); BILIRUBIN,INDIRECT 0.7 mg/dl (0-1.1); BILIRUBIN,TOTAL 0.7 mg/dl (0.2-1.3); BLOOD UREA NITROGEN 9 mg/dl (7-20); CALCIUM 9.1 mg/dl (8.4-10.2); CARBON DIOXIDE 23 mmol/L (21-31); CHLORIDE 104 mmol/L (97-110); CHOL/HDL RATIO 4.2 RATIO; CHOLESTEROL 195 mg/dl (100-200); CREATININE 0.65 mg/dl (0.61-1.24); Estimated GFR > 60 mL/min (>60); GLUCOSE 169 mg/dl (70-220); HDL CHOLESTEROL 46 mg/dl (30-78); LDL CHOLESTEROL,CALCULATED 136 mg/dl; MAGNESIUM 1.8 mg/dl (1.7-2.5); PHOSPHORUS 1.1 mg/dl (2.5-4.9); POTASSIUM 3.5 mmol/L (3.5-5.1); SODIUM 136 mmol/L (135-144); TOTAL PROTEIN 6.9 g/dl (6.1-8.1); TRIGLYCERIDES 67 mg/dl (0-149)
[2018-04-26] MEDS: metroNIDAZOLE 500 MG/NS (PMX) 100 ML IVPB ×3 (06:11→22:36)
[2018-04-26] MEDS: FAMOTIDINE 20 MG INJ IV ×4 (09:00→21:27)
[2018-04-26] MEDS: LISINOPRIL 20 MG TAB PO (09:01)
[2018-04-26] MEDS: AMLODIPINE 10 MG TAB PO (09:01)
[2018-04-26] MEDS: CITALOPRAM 20 MG TAB PO (09:02)
[2018-04-26] MEDS: CIPROFLOXACIN 400MG/D5W 200 ML IVPB ×2 (09:07→21:26)
[2018-04-26] MEDS: KETOROLAC 30 MG INJ IV (14:31)
[2018-04-26] MEDS: OXYCODONE/ACETAMINOPHEN (5/325) TAB PO (21:40)
[2018-04-26 22:52] LABS: ADD UMIC NO; UR ASCORBIC ACID NEGATIVE (NEGATIVE); UR BILIRUBIN (Dip) NEGATIVE (NEGATIVE); UR BLOOD (Dip) NEGATIVE (NEGATIVE); UR CLARITY CLEAR (CLEAR); UR COLOR YELLOW (YELLOW); UR GLUCOSE (Dip) 1+ mg/dL (NEGATIVE); UR KETONES (Dip) NEGATIVE (NEGATIVE); UR LEUKOCYTE ESTERASE (Dip) NEGATIVE Leu/ul (NEGATIVE); UR NITRITE (Dip) NEGATIVE (NEGATIVE); UR SPECIFIC GRAVITY (Dip) 1.009 (1.003-1.030); UR TOTAL PROTEIN (Dip) NEGATIVE (NEGATIVE); UR UROBILINOGEN (Dip) NEGATIVE (NEGATIVE)
[2018-04-27] MEDS: KETOROLAC 30 MG INJ IV (05:05)
[2018-04-27] MEDS: PIPER-TAZO 3.375 GM IV (PMX) 100 ML IVPB (05:09)
[2018-04-27 05:22] LABS: ADD MAN DIFF? NO
[2018-04-27 05:25] LABS: WHITE BLOOD COUNT 16.4 10^3/ul (4.8-10.8)
[2018-04-27 05:25] LABS: ABNORMAL IP MESSAGE 1; BASOPHILS % 0.1 % (0.0-2.0); HEMATOCRIT 37.5 % (42.0-52.0); HEMOGLOBIN 12.8 g/dl (14.0-18.0); LYMPHOCYTES # 1.6 10^3/ul (0.8-2.9); LYMPHOCYTES % 9.9 % (15.0-51.0); MEAN CORPUSCULAR HEMOGLOBIN 29.6 pg (29.0-33.0); MEAN CORPUSCULAR HGB CONC 34.1 g/dl (32.0-37.0); MEAN CORPUSCULAR VOLUME 86.6 fl (82.0-101.0); MEAN PLATELET VOLUME 10.3 fl (7.4-10.4); MONOCYTE # 1.7 10^3/ul (0.3-0.9); MONOCYTES % 10.5 % (0.0-11.0); PLATELET COUNT 238 10^3/UL (140-415); POSITIVE DIFF @See below; RED BLOOD COUNT 4.33 10^6/ul (4.70-6.10); RED CELL DISTRIBUTION WIDTH 13.4 % (11.5-14.5)
[2018-04-27] MEDS: metroNIDAZOLE 500 MG/NS (PMX) 100 ML IVPB (06:00)
[2018-04-27 06:10] LABS: ANION GAP 9 (5-13); BLOOD UREA NITROGEN 9 mg/dl (7-20); CARBON DIOXIDE 23 mmol/L (21-31); CHLORIDE 109 mmol/L (97-110); CREATININE 0.69 mg/dl (0.61-1.24); Estimated GFR > 60 mL/min (>60); GLUCOSE 114 mg/dl (70-220); POTASSIUM 3.5 mmol/L (3.5-5.1); SODIUM 141 mmol/L (135-144)
== END 2018-04-27 06:40 | disposition left against medical advice (07) | DRG 330 ==
LOC: E/R 01:22 → PP2 09:19
PROC: 0DBH4ZZ Excision of Cecum, Percutaneous Endoscopic Approach (ICD-10-PCS; principal; 2018-04-26 00:15)
PROC: 0DTJ4ZZ Resection of Appendix, Percutaneous Endoscopic Approach (ICD-10-PCS; 2018-04-26 00:15)
DX: K55.1 Chronic vascular disorders of intestine (principal); K35.30 Acute appendicitis with localized peritonitis, without perforation or gangrene; Z72.0 Tobacco use; Z79.899 Other long term (current) drug therapy; F11.11 Opioid abuse, in remission; I10 Essential (primary) hypertension
CPT/HCPCS: 36415; 71045; 74176; 74181; 80048; 80053; 80061; 80307; 81001; 81003; 82150; 83036; 83690; 83735; 84100; 85025; 85610; 85730; 87040; 87086; 88304; 93005; 96374; 96375; 99285-25; G0378

== ENCOUNTER 2018-07-31 09:19 | Emergency (ER) | payer MEDICARE, OTHER ==
[2018-07-31] MEDS: IPRATROPIUM (NEB) 0.5 MG/2.5 ML AMP INH (11:59)
[2018-07-31] MEDS: ALBUTEROL 0.5% (NEB) 2.5 MG/0.5 ML AMP INH (11:59)
[2018-07-31 12:19] LABS: ADD MAN DIFF? NO; BASOPHILS % 0.2 % (0.0-2.0); EOSINOPHILS # 0.8 10^3/ul (0.0-0.5); EOSINOPHILS % 7.4 % (0.0-7.0); HEMATOCRIT 46.5 % (42.0-52.0); HEMOGLOBIN 15.8 g/dl (14.0-18.0); LYMPHOCYTES % 19.7 % (15.0-51.0); MEAN CORPUSCULAR HEMOGLOBIN 29.7 pg (29.0-33.0); MEAN CORPUSCULAR VOLUME 87.4 fl (82.0-101.0); MEAN PLATELET VOLUME 9.4 fl (7.4-10.4); MONOCYTE # 0.8 10^3/ul (0.3-0.9); MONOCYTES % 7.5 % (0.0-11.0); NEUTROPHIL # 6.7 10^3/ul (1.6-7.5); NEUTROPHILS % 64.9 % (39.0-77.0); PLATELET COUNT 317 10^3/UL (140-415); RED BLOOD COUNT 5.32 10^6/ul (4.70-6.10); RED CELL DISTRIBUTION WIDTH 13.4 % (11.5-14.5)
[2018-07-31 12:19] LABS: WHITE BLOOD COUNT 10.3 10^3/ul (4.8-10.8)
[2018-07-31 12:42] LABS: ALANINE AMINOTRANSFERASE 14 IU/L (13-69); ALBUMIN 4.9 g/dl (3.3-4.9); ALBUMIN/GLOBULIN RATIO 1.32; ALKALINE PHOSPHATASE 87 IU/L (42-121); ANION GAP 13 (5-13); ASPARTATE AMINO TRANSFERASE 23 IU/L (15-46); BILIRUBIN,INDIRECT 0.6 mg/dl (0-1.1); BILIRUBIN,TOTAL 0.6 mg/dl (0.2-1.3); BLOOD UREA NITROGEN 9 mg/dl (7-20); CARBON DIOXIDE 27 mmol/L (21-31); CHLORIDE 105 mmol/L (97-110); CREATININE 0.72 mg/dl (0.61-1.24); Estimated GFR > 60 mL/min (>60); GLUCOSE 97 mg/dl (70-220); LIPASE 64 U/L (23-300); POTASSIUM 4.6 mmol/L (3.5-5.1); SODIUM 145 mmol/L (135-144); TOTAL PROTEIN 8.6 g/dl (6.1-8.1)
[2018-07-31] MEDS: KETOROLAC 15 MG INJ IV (12:45)
[2018-07-31] MEDS: METHYLPREDNISOLONE 125 MG INJ IV (12:45)
[2018-07-31] MEDS: SOD CHLORIDE 0.9% 500 ML IV (12:46)
[2018-07-31 12:53] LABS: TROPONIN-I < 0.012 ng/ml (0.000-0.120)
[2018-07-31] MEDS: LEVOFLOXACIN 750MG/D5W (PMX) 150 ML IVPB (13:50)
== END 2018-07-31 15:40 | disposition left against medical advice (07) ==
LOC: E/R 09:19
DX: J20.9 Acute bronchitis, unspecified (principal); I10 Essential (primary) hypertension; F17.210 Nicotine dependence, cigarettes, uncomplicated; J45.901 Unspecified asthma with (acute) exacerbation; Z79.82 Long term (current) use of aspirin
CPT/HCPCS: 71045; 80053; 83690; 84484; 85025; 93005; 94664; 96374; 96375; 99285-25

== ENCOUNTER 2018-08-06 21:59 | Inpatient (IN) | payer MEDICARE, OTHER ==
[2018-08-06] MEDS: IPRATROPIUM (NEB) 0.5 MG/2.5 ML AMP INH (22:12)
[2018-08-06] MEDS: ALBUTEROL 0.5% (NEB) 2.5 MG/0.5 ML AMP INH (22:12)
[2018-08-06] MEDS: METHYLPREDNISOLONE 125 MG INJ IV (22:26)
[2018-08-06 22:31] LABS: ADD MAN DIFF? NO
[2018-08-06 22:33] LABS: WHITE BLOOD COUNT 12.4 10^3/ul (4.8-10.8)
[2018-08-06 22:33] LABS: BASOPHILS % 0.2 % (0.0-2.0); EOSINOPHILS # 1.5 10^3/ul (0.0-0.5); HEMATOCRIT 45.4 % (42.0-52.0); HEMOGLOBIN 15.7 g/dl (14.0-18.0); LYMPHOCYTES # 3.3 10^3/ul (0.8-2.9); LYMPHOCYTES % 26.3 % (15.0-51.0); MEAN CORPUSCULAR HGB CONC 34.6 g/dl (32.0-37.0); MEAN CORPUSCULAR VOLUME 86.6 fl (82.0-101.0); MEAN PLATELET VOLUME 9.3 fl (7.4-10.4); MONOCYTE # 1.4 10^3/ul (0.3-0.9); MONOCYTES % 11.1 % (0.0-11.0); NEUTROPHIL # 6.2 10^3/ul (1.6-7.5); NEUTROPHILS % 49.5 % (39.0-77.0); PLATELET COUNT 329 10^3/UL (140-415); RED BLOOD COUNT 5.24 10^6/ul (4.70-6.10); RED CELL DISTRIBUTION WIDTH 13.6 % (11.5-14.5)
[2018-08-06 22:50] LABS: ANION GAP 12 (5-13); BLOOD UREA NITROGEN 19 mg/dl (7-20); CALCIUM 9.8 mg/dl (8.4-10.2); CARBON DIOXIDE 26 mmol/L (21-31); CHLORIDE 102 mmol/L (97-110); CREATININE 0.94 mg/dl (0.61-1.24); Estimated GFR > 60 mL/min (>60); GLUCOSE 102 mg/dl (70-220); POTASSIUM 3.7 mmol/L (3.5-5.1); SODIUM 140 mmol/L (135-144)
[2018-08-06 22:53] LABS: PROTIME 13.3 Sec (11.9-14.9)
[2018-08-06 23:01] LABS: TROPONIN-I < 0.012 ng/ml (0.000-0.120)
[2018-08-07] MEDS ORDERED: ACETAMINOPHEN 325 MG TAB PO ×2
[2018-08-07] MEDS ORDERED: hydrOXYzine HCL 10 MG TAB PO
[2018-08-07] MEDS ORDERED: NACL 0.9% 3 ML SYG IV
[2018-08-07] MEDS ORDERED: ONDANSETRON 4 MG INJ IV ×2
[2018-08-07] MEDS ORDERED: DOCUSATE SODIUM 100 MG CAP PO
[2018-08-07] MEDS ORDERED: BISACODYL (EC) 5 MG TAB PO
[2018-08-07] MEDS: ALBUTEROL/IPRATROPIUM (NEB) 3 ML AMP HHN ×5 (00:17→20:07)
[2018-08-07] MEDS: FAMOTIDINE 20 MG TAB PO ×3 (01:06→21:11)
[2018-08-07] MEDS: ENOXAPARIN 40 MG/0.4 ML SYG SC ×2 (01:08→09:43)
[2018-08-07 01:48] LABS: LACTIC ACID 2.3 mmol/L (0.5-2.0)
[2018-08-07 04:12] LABS: LACTIC ACID 2.7 mmol/L (0.5-2.0)
[2018-08-07 04:15] LABS: CHOL/HDL RATIO 4.8 RATIO; CHOLESTEROL 224 mg/dl (100-200); HDL CHOLESTEROL 46 mg/dl (30-78); LDL CHOLESTEROL,CALCULATED 158 mg/dl; TRIGLYCERIDES 101 mg/dl (0-149)
[2018-08-07 04:46] LABS: THYROID STIMULATING HORMONE 0.458 MIU/L (0.465-4.680)
[2018-08-07] MEDS: SOD CHLORIDE 0.9% 500 ML IV ×2 (05:15→08:19)
[2018-08-07] MEDS: METHYLPREDNISOLONE 40 MG INJ IV ×2 (05:15→21:11)
[2018-08-07] MEDS: GUAIFENESIN/DM 5ML CUP PO ×2 (05:16→21:09)
[2018-08-07] MEDS: LEVOFLOXACIN 750 MG TABLET PO (06:13)
[2018-08-07 08:34] LABS: ADD MAN DIFF? NO
[2018-08-07 08:45] LABS: WHITE BLOOD COUNT 9.7 10^3/ul (4.8-10.8)
[2018-08-07 08:45] LABS: BASOPHILS % 0.1 % (0.0-2.0); EOSINOPHILS % 0.1 % (0.0-7.0); HEMATOCRIT 40.8 % (42.0-52.0); HEMOGLOBIN 13.8 g/dl (14.0-18.0); LYMPHOCYTES # 0.8 10^3/ul (0.8-2.9); LYMPHOCYTES % 8.6 % (15.0-51.0); MEAN CORPUSCULAR HEMOGLOBIN 29.6 pg (29.0-33.0); MEAN CORPUSCULAR HGB CONC 33.8 g/dl (32.0-37.0); MEAN CORPUSCULAR VOLUME 87.4 fl (82.0-101.0); MEAN PLATELET VOLUME 9.6 fl (7.4-10.4); MONOCYTE # 0.1 10^3/ul (0.3-0.9); MONOCYTES % 0.8 % (0.0-11.0); NEUTROPHIL # 8.7 10^3/ul (1.6-7.5); NEUTROPHILS % 89.8 % (39.0-77.0); PLATELET COUNT 272 10^3/UL (140-415); RED BLOOD COUNT 4.67 10^6/ul (4.70-6.10); RED CELL DISTRIBUTION WIDTH 13.7 % (11.5-14.5)
[2018-08-07] MEDS ORDERED: CITALOPRAM 20 MG TAB PO (09:00)
[2018-08-07 09:05] LABS: ALANINE AMINOTRANSFERASE 13 IU/L (13-69); ALBUMIN 3.9 g/dl (3.3-4.9); ALBUMIN/GLOBULIN RATIO 1.25; ALKALINE PHOSPHATASE 58 IU/L (42-121); ANION GAP 11 (5-13); ASPARTATE AMINO TRANSFERASE 18 IU/L (15-46); BILIRUBIN,INDIRECT 0.6 mg/dl (0-1.1); BILIRUBIN,TOTAL 0.6 mg/dl (0.2-1.3); BLOOD UREA NITROGEN 14 mg/dl (7-20); CALCIUM 8.9 mg/dl (8.4-10.2); CARBON DIOXIDE 22 mmol/L (21-31); CHLORIDE 106 mmol/L (97-110); CREATININE 0.65 mg/dl (0.61-1.24); Estimated GFR > 60 mL/min (>60); GLUCOSE 156 mg/dl (70-220); POTASSIUM 3.8 mmol/L (3.5-5.1); SODIUM 139 mmol/L (135-144)
[2018-08-07 09:21] LABS: LACTIC ACID 4.1 mmol/L (0.5-2.0)
[2018-08-07] MEDS: CITALOPRAM 20 MG TAB PO (09:34)
[2018-08-07] MEDS: AMLODIPINE 10 MG TAB PO (09:34)
[2018-08-07] MEDS: LISINOPRIL 20 MG TAB PO (09:34)
[2018-08-07] MEDS: ASPIRIN (EC) 81 MG TAB PO (09:35)
[2018-08-07] MEDS: LEVALBUTEROL (NEB) 1.25 MG/0.5 ML AMP HHN (11:39)
[2018-08-07] MEDS: TIOTROPIUM 18 MCG CAPSULE INHA DEV INH (14:30)
[2018-08-07 15:29] LABS: AMPHETAMINE/METHAMPHETAMINE Negative (NEGATIVE); BARBITURATES Negative (NEGATIVE); BENZODIAZEPINES Negative (NEGATIVE); CANNABINOIDS Negative (NEGATIVE); COCAINE Negative (NEGATIVE); OPIATES Positive (NEGATIVE)
[2018-08-07] MEDS: BENZONATATE 100 MG CAP PO (21:09)
[2018-08-07] MEDS: METOPROLOL 25 MG TAB NGT (21:11)
[2018-08-08] MEDS: ALBUTEROL/IPRATROPIUM (NEB) 3 ML AMP HHN ×3 (00:17→08:04)
[2018-08-08] MEDS: LORAZEPAM 2 MG INJ IV (04:36)
[2018-08-08] MEDS: LEVOFLOXACIN 750 MG TABLET PO (05:05)
[2018-08-08 07:03] LABS: ADD MAN DIFF? NO
[2018-08-08 07:05] LABS: BASOPHILS % 0.2 % (0.0-2.0); HEMATOCRIT 39.9 % (42.0-52.0); HEMOGLOBIN 13.8 g/dl (14.0-18.0); LYMPHOCYTES # 1.1 10^3/ul (0.8-2.9); LYMPHOCYTES % 6.3 % (15.0-51.0); MEAN CORPUSCULAR HEMOGLOBIN 29.3 pg (29.0-33.0); MEAN CORPUSCULAR HGB CONC 34.6 g/dl (32.0-37.0); MEAN CORPUSCULAR VOLUME 84.7 fl (82.0-101.0); MONOCYTE # 1.2 10^3/ul (0.3-0.9); MONOCYTES % 6.5 % (0.0-11.0); NEUTROPHIL # 15.2 10^3/ul (1.6-7.5); PLATELET COUNT 281 10^3/UL (140-415); RED BLOOD COUNT 4.71 10^6/ul (4.70-6.10)
[2018-08-08 07:05] LABS: WHITE BLOOD COUNT 17.6 10^3/ul (4.8-10.8)
[2018-08-08 07:37] LABS: ALBUMIN 3.9 g/dl (3.3-4.9); ALBUMIN/GLOBULIN RATIO 1.34; ALKALINE PHOSPHATASE 56 IU/L (42-121); ANION GAP 12 (5-13); ASPARTATE AMINO TRANSFERASE 18 IU/L (15-46); BILIRUBIN,INDIRECT 0.4 mg/dl (0-1.1); BILIRUBIN,TOTAL 0.4 mg/dl (0.2-1.3); BLOOD UREA NITROGEN 11 mg/dl (7-20); CALCIUM 9.4 mg/dl (8.4-10.2); CARBON DIOXIDE 24 mmol/L (21-31); CHLORIDE 106 mmol/L (97-110); CHOL/HDL RATIO 4.9 RATIO; CHOLESTEROL 219 mg/dl (100-200); CREATININE 0.61 mg/dl (0.61-1.24); Estimated GFR > 60 mL/min (>60); GLUCOSE 133 mg/dl (70-220); HDL CHOLESTEROL 44 mg/dl (30-78); LDL CHOLESTEROL,CALCULATED 142 mg/dl; POTASSIUM 3.9 mmol/L (3.5-5.1); SODIUM 142 mmol/L (135-144); TOTAL PROTEIN 6.8 g/dl (6.1-8.1); TRIGLYCERIDES 164 mg/dl (0-149)
[2018-08-08 07:38] LABS: ALANINE AMINOTRANSFERASE < 6 IU/L (13-69)
[2018-08-08] MEDS: CITALOPRAM 20 MG TAB PO (08:40)
[2018-08-08] MEDS: ASPIRIN (EC) 81 MG TAB PO (08:41)
[2018-08-08] MEDS: FAMOTIDINE 20 MG TAB PO (08:41)
[2018-08-08] MEDS: AMLODIPINE 10 MG TAB PO (08:41)
[2018-08-08] MEDS: LISINOPRIL 20 MG TAB PO (08:41)
[2018-08-08] MEDS: METHYLPREDNISOLONE 40 MG INJ IV (08:42)
[2018-08-08] MEDS: ENOXAPARIN 40 MG/0.4 ML SYG SC (08:46)
[2018-08-08] MEDS: METOPROLOL 25 MG TAB NGT (08:49)
[2018-08-08] MEDS: TIOTROPIUM 18 MCG CAPSULE INHA DEV INH (09:00)
== END 2018-08-08 10:16 | disposition left against medical advice (07) | DRG 191 ==
LOC: E/R 21:59 → 6WM 23:35
PROVIDERS: Family Medicine
DX: J44.1 Chronic obstructive pulmonary disease with (acute) exacerbation (principal); E87.2 Acidosis; I11.0 Hypertensive heart disease with heart failure; I50.9 Heart failure, unspecified; E78.5 Hyperlipidemia, unspecified; F17.200 Nicotine dependence, unspecified, uncomplicated; J44.0 Chronic obstructive pulmonary disease with (acute) lower respiratory infection; J20.9 Acute bronchitis, unspecified
CPT/HCPCS: 36415; 71045; 80048; 80053; 80061; 80307; 82306; 83036; 83605; 83735; 84443; 84484; 85025; 85610; 87040-91; 87070; 87086; 93005; 94640; 94644; 94664; 96374; 99285-25

== ENCOUNTER 2018-08-09 09:01 | Emergency (ER) | payer MEDICARE, OTHER | END 2018-08-09 09:48 | disposition home or self-care (01) | LOC: E/R 09:01 | DX: J44.1 Chronic obstructive pulmonary disease with (acute) exacerbation (principal); F17.210 Nicotine dependence, cigarettes, uncomplicated; Z79.82 Long term (current) use of aspirin | CPT/HCPCS: 99283 ==